=== PATIENT | female | born 1980 | race Caucasian/White ===

== ENCOUNTER 2016-12-06 17:21 | Emergency (ER) | payer OTHER ==
[~2016-12-06] VITALS: Ht 154.9 cm; Wt 52.7 kg
[~2016-12-06 17:21] MED LIST: KLN1X PO; VENL150T33 PO
[2016-12-06 17:46] VITALS: TEMP 36.6; Ht 154.9 cm; Wt 52.7 kg
[2016-12-06] MEDS ORDERED: HYDROCODONE/ACETAMOPHEN 5/325MG TAB PO STA (18:40)
[2016-12-06 18:58] VITALS: BP 101/57; PULSE 89; O2SAT 100
--- NOTE | 2016-12-08 00:41 | EMERGENCY ROOM VISIT NOTE ---
ED Visit Note First contact with patient: 18:15 Chief Complaint: Lower back pain. History of Present Illness: Ms. Vergara is a 36-year-old white female who ambulates into the ED accompanied by a male friend complaining of lower back pain. Historically patient reports she has been having back pain for multiple years. She reports she has never seen a specialist but she has had x-rays of her back that shows no acute diseases and in 2007 she had an MRI which she reports showed multiple areas of degeneration; I was able to review her MRI results and showed diffuse annular bulging at the L3-L4 level with minimal central protrusion, central disc extrusion at L4-L5 and broad-based left sided disc protrusion at L5-S1. Patient reports she recently started a new job about 1.5 weeks ago. 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 Currently she is complaining of achy and spasm-like pain at the L4- S1 area with prominence on the left side. She currently rates her discomfort 9/ 10. She reports there is radiation of her discomfort into both buttocks but the discomfort in her left side radiates into the posterior thigh and stops just above the knee. Her pain worsens with all movement of the lumbar spine, palpation and moving from the sitting to the standing and sitting to lying position. She reports she's been using [id number] medications without relief of her discomfort. Associated with her pain she does report she is having paresthesias of the upper left buttocks area. She denies fevers, chills, sweats, skin eruptions, skin color changes, abdominal pain, nausea, vomiting, constipation, diarrhea, urinary symptoms, hematuria, bowel and bladder dysfunction, vaginal bleeding, vaginal discharge, lower extremity weakness/numbness/tingling, recent weight loss, history of IV drug use. Review of Systems: As noted above in history of present illness. 8 body systems were reviewed and found to be negative as noted above. Past Medical History: Status post tubal ligation and cholecystectomy. Current Medications: Patient denies. Allergies to Medications: Codeine, metronidazole, flurbiprofen, sertraline, milnacipran, ketorolac tromethamine. Social History: Patient is currently employed; she feels safe in her home environment; she admits to tobacco use and denies alcohol use. Physical Examination: Vital Signs: Date Time Temp Pulse Resp B/P Pulse Ox O2 Delivery O2 Flow Rate FiO2 12/06/16 18:58 89 16 101/57 100 12/06/16 17:46 36.6 110 16 96/57 100 Room Air GENERAL: 36-year-old female in moderate distress due to pain, nontoxic-appearing , afebrile and hemodynamically stable. Patient is crying and tearful. NEUROLOGICAL: Awake, alert and oriented to person, place and time. Answering questions appropriately and following commands. Good hand eye coordination. No focal motor sensory deficits. SKIN: Warm, dry and pink. No soft tissue eruptions or trauma noted. HEENT: Atraumatic and normocephalic. BACK: No tenderness over the bony cervical and thoracic spine. No CVA tenderness. Moderate tenderness over the L4 through S1 area over the bony prominence without deformity, step-offs, swelling, ecchymosis or bony crepitus. There is also moderate tenderness throughout the paraspinous bilaterally which was slightly more prominent on the left. There was tenderness in the left buttocks but not the right. Decreased range of motion in all movements of the waist. Unable to perform a straight leg raise test due to patient discomfort. THORAX: Lungs sounds are clear to auscultation and equal bilaterally with symmetrical chest wall. No wheezing, rales or rhonchi. ABDOMEN: Flat, soft and nontender. Positive bowel sounds in all quadrants. No guarding, rigidity or organomegaly. LOWER EXTREMITIES: No gross bony deformity. No tenderness in the hips, thighs , knees, lower legs, ankles or feet. Decreased range of motion of the hips due to back pain. No tenderness over the knees, ankles or feet. Full range of motion of the hips, ankles and toes. 4/5 muscle strength in all movements of the hips, knees, ankles and toes. 2+ patellar and Achilles tendon reflexes intact and equal bilaterally. She was able to distinguish light sensations through all dermatomes of the lower legs and feet. Dorsalis pedis and anterior tibialis pulses are intact and equal bilaterally. Capillary refill is brisk. No calf tenderness or cords. ED Course: Patient is assessed as noted above. Patient was given 2 [place] 5/325 mg tablets by mouth for pain. Patient was educated about tonight's findings and instructed on her treatment plan; she verbalized understanding and agreement with this plan. Clinical Impression: Lumbar back pain. Disposition: Patient discharged home in stable condition accompanied by a male friend; prior to departure she was reassessed and subjectively reported she was feeling worse and rated her discomfort 10/10. Plan: Comfort measures were discussed with the patient including a sliding pain scale of acetaminophen and [place], ice, proper lifting and moving techniques; appropriate narcotic use precautions were discussed with the patient. Patient was encouraged to follow-up with her primary care provider or her previous back provider for recheck if no better in 3-4 days. Patient was encouraged return ED for worsening/uncontrolled pain, fevers, abdominal pain, bloody stools, rectal/genital paresthesias, bowel and bladder dysfunction, lower extremity numbness/tingling or any new/concerning symptoms.
== END 2016-12-06 18:59 | disposition home or self-care (01) ==
LOC: C.EDB 17:22 → C.EDD 18:59
DX: M54.5 Low back pain (principal); F17.210 Nicotine dependence, cigarettes, uncomplicated

== ENCOUNTER 2016-12-29 23:13 | Emergency (ER) | payer OTHER ==
[~2016-12-29] VITALS: Ht 154.9 cm; Wt 50.0 kg
[2016-12-29 23:14] VITALS: TEMP 36.6; Ht 154.9 cm; Wt 50.0 kg
[2016-12-30] MEDS ORDERED: DEXAMETHASONE SOD INJ 10 MG/ML VIAL IM ONE
[2016-12-30] MEDS ORDERED: CYCLOBENZAPRINE HCL 10 MG TAB PO STA
[2016-12-30] MEDS ORDERED: TRAMADOL HCL 50 MG TAB PO STA
[2016-12-30] MEDS ORDERED: TRAMADOL HCL 50 MG HOME PACK PO ONE (01:00)
[2016-12-30] MEDS ORDERED: FLEXERIL HOME PACK 10 MG VIAL PO ONE (01:00)
[2016-12-30] MEDS ORDERED: PRED50TA PO (01:03)
[2016-12-30] MEDS ORDERED: CYCL10TA6 PO (01:03)
[2016-12-30] MEDS ORDERED: TRAM-10 PO (01:03)
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
[2016-12-30 01:28] VITALS: BP 128/68; PULSE 64; O2SAT 96
== END 2016-12-30 01:31 | disposition home or self-care (01) ==
LOC: C.EDB 23:13 → C.EDA 12-30 01:31
DX: M54.5 Low back pain (principal); M54.16 Radiculopathy, lumbar region; G89.29 Other chronic pain; F41.9 Anxiety disorder, unspecified; F32.9 Major depressive disorder, single episode, unspecified; Z87.828 Personal history of other (healed) physical injury and trauma; Z86.19 Personal history of other infectious and parasitic diseases; Z98.51 Tubal ligation status; Z90.49 Acquired absence of other specified parts of digestive tract; Z79.899 Other long term (current) drug therapy; Z88.5 Allergy status to narcotic agent; Z88.8 Allergy status to other drugs, medicaments and biological substances

== ENCOUNTER 2017-04-07 23:41 | Emergency (ER) | payer OTHER ==
[~2017-04-07] VITALS: Ht 154.9 cm; Wt 54.2 kg
[~2017-04-07 23:41] MED LIST changes: +TRAM-10 PO
[2017-04-07 23:48] VITALS: TEMP 36.7; Ht 154.9 cm; Wt 54.2 kg
[2017-04-08] MEDS ORDERED: CEFTRIAXONE SOD INJ 1 GM ADDVIAL IV STA (00:06)
[2017-04-08 00:26] LABS: BASO % 0.3 %; BASO ABS # 0.02 K/uL (0-0.2); COMPLETE YES; EOS % 1.5 %; HEMATOCRIT 32.9 % (37-47); IG% 0.3 %; LYMPH % 27.6 %; LYMPH ABS # 2.07 K/uL (1.2-3.4); MEAN CELL VOLUME 87.7 fL (80-100); MEAN CORPUSCULAR HEMOGLOBIN 27.5 pg (25-34); MEAN CORPUSCULAR HGB CONC 31.3 g/dl (32-36); MEAN PLATELET VOLUME 8.7 fL (7.4-10.4); MONO % 9.3 %; PLATELET COUNT 176 K/uL (130-400); RED BLOOD COUNT 3.75 M/uL (4.2-5.4)
[2017-04-08] MEDS ORDERED: NRN400 PO (00:27)
[2017-04-08] MEDS ORDERED: METH500T PO (00:27)
[2017-04-08 00:44] LABS: BUN/CREATININE RATIO 11.4 (10-20); CALCIUM 8.4 mg/dl (8.5-10.1); CREATININE 0.71 mg/dl (0.60-1.20); POTASSIUM 3.2 mmol/L (3.5-5.1)
[2017-04-08 00:59] LABS: PREG INTERNAL NEGATIVE QC NEG CLEAR BACKGROUND; PREG INTERNAL POSITIVE QC POS CONTROL LINE
[2017-04-08] MEDS ORDERED: POTASSIUM CHLORIDE 10 MEQ TABCR PO STA (01:02)
[2017-04-08] MEDS ORDERED: ACETAMINOPHEN 500 MG TAB PO STA (01:02)
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
[2017-04-08] MEDS ORDERED: CEPHALEXIN 500MG HOME PACK 1 EA BTL PO ONE (01:45)
[2017-04-08] MEDS ORDERED: CEPH500C2 PO (01:46)
[2017-04-08 01:59] VITALS: BP 115/69; PULSE 76; O2SAT 98
--- NOTE | 2017-04-08 06:54 | DIAGNOSTIC IMAGING REPORT ---
TARGETED LEFT BREAST ULTRASOUND CLINICAL HISTORY: Left breast lump. COMPARISON STUDY: Left breast ultrasound May 09, 2014. TECHNIQUE: Targeted sonography of the left breast 6:00 position at site of palpable lump was performed. FINDINGS: No mass, fluid collection or other sonographic abnormality was identified within the left breast at the 6:00 position at the site of palpable abnormality. IMPRESSION: No sonographic abnormality within the left breast at the 6:00 position. No mass or fluid collection identified. If persistent palpable abnormality, a follow-up ultrasound in mammogram are recommended to exclude an occult lesion. Electronically signed by: Joseph Neumann M.D. 04/08/2017 6:52 AM Dictated Date/Time: 04/08/2017 6:50 AM
== END 2017-04-08 01:58 | disposition home or self-care (01) ==
LOC: C.EDB 23:42 → C.EDA 04-08 01:58
DX: N61.0 Mastitis without abscess (principal); M54.5 Low back pain; G89.29 Other chronic pain; F41.9 Anxiety disorder, unspecified; F32.9 Major depressive disorder, single episode, unspecified; Z90.49 Acquired absence of other specified parts of digestive tract; Z98.51 Tubal ligation status; Z83.3 Family history of diabetes mellitus; Z84.1 Family history of disorders of kidney and ureter; F17.210 Nicotine dependence, cigarettes, uncomplicated; Z79.899 Other long term (current) drug therapy

== ENCOUNTER 2017-04-13 10:43 | Emergency (ER) | payer OTHER ==
[~2017-04-13] VITALS: Ht 154.9 cm; Wt 52.9 kg
[~2017-04-13 10:43] MED LIST changes: +CEPH500C2 PO; +METH500T PO; +NRN400 PO; -TRAM-10 PO
[2017-04-13 10:44] VITALS: TEMP 36.7; Ht 154.9 cm; Wt 52.9 kg
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
[2017-04-13] MEDS ORDERED: CLONAZEPAM 0.5 MG TAB PO STA (11:15)
[2017-04-13 11:37] LABS: BASO % 0.1 %; BASO ABS # 0.01 K/uL (0-0.2); COMPLETE YES; EOS % 1.3 %; HEMATOCRIT 35.2 % (37-47); IG% 0.3 %; LYMPH % 18.6 %; LYMPH ABS # 1.42 K/uL (1.2-3.4); MEAN CORPUSCULAR HEMOGLOBIN 27.5 pg (25-34); MEAN CORPUSCULAR HGB CONC 31.3 g/dl (32-36); MEAN PLATELET VOLUME 8.8 fL (7.4-10.4); MONO % 12.7 %; PLATELET COUNT 177 K/uL (130-400); WHITE BLOOD COUNT 7.63 K/uL (4.8-10.8)
[2017-04-13] MEDS ORDERED: IBUP600T44 PO (11:44)
[2017-04-13 11:58] LABS: ALT/SGPT 12 U/L (12-78); AST/SGOT 9 U/L (15-37); BLOOD UREA NITROGEN 7 mg/dl (7-18); BUN/CREATININE RATIO 11.5 (10-20); CALCIUM 8.5 mg/dl (8.5-10.1); CARBON DIOXIDE 29 mmol/L (21-32); CHLORIDE 109 mmol/L (98-107); CREATININE 0.64 mg/dl (0.60-1.20); GLUCOSE 83 mg/dl (70-99); POTASSIUM 3.8 mmol/L (3.5-5.1); SODIUM 142 mmol/L (136-145)
[2017-04-13 12:01] LABS: ALKALINE PHOSPHATASE 54 U/L (45-117)
--- NOTE | 2017-04-13 12:19 | DIAGNOSTIC IMAGING REPORT ---
BREAST LIMITED UNILATERAL CLINICAL HISTORY: 36 years-old Female presenting with increased thickening and induration of the left breast with tenderness at 6:00. TECHNIQUE: Real-time grayscale ultrasound imaging of the left breast was performed. Color Doppler was also performed. COMPARISON: None. FINDINGS: Heterogeneity and architectural distortion of the normal memory fat. Dilated subcutaneous lymphatics noted. No focal collection. No definite mass. Heterogeneous perfusion noted. No evidence of a dilated duct. IMPRESSION: 1. Findings could suggest cellulitis with phlegmonous changes. No definite abscess or mass. Continued clinical follow-up recommended with possible repeat ultrasound after trial of antibiotics. Electronically signed by: Wilbert Munoz M.D. 04/13/2017 12:18 PM Dictated Date/Time: 04/13/2017 12:15 PM
[2017-04-13] MEDS ORDERED: CEFTRIAXONE SOD INJ 1 GM ADDVIAL IV STA (12:21)
[2017-04-13] MEDS ORDERED: CEFD1CAP14 PO (12:40)
[2017-04-13] MEDS ORDERED: SULF800T23 PO (12:40)
[2017-04-13] MEDS ORDERED: SULFAMETHOXAZOLE/TRIMETHOPRIM DS 800/160MG TAB PO ONE (12:45)
[2017-04-13 13:21] VITALS: BP 108/69; PULSE 102; O2SAT 100
== END 2017-04-13 13:26 | disposition home or self-care (01) ==
LOC: C.EDB 10:44 → C.EDC 13:26
DX: N61.0 Mastitis without abscess (principal); F41.9 Anxiety disorder, unspecified; G89.29 Other chronic pain; M54.9 Dorsalgia, unspecified; F32.9 Major depressive disorder, single episode, unspecified; K29.70 Gastritis, unspecified, without bleeding; E87.6 Hypokalemia; G43.909 Migraine, unspecified, not intractable, without status migrainosus; N73.9 Female pelvic inflammatory disease, unspecified; Z83.3 Family history of diabetes mellitus; Z84.1 Family history of disorders of kidney and ureter; F17.210 Nicotine dependence, cigarettes, uncomplicated; Z79.899 Other long term (current) drug therapy

== ENCOUNTER → 2017-04-27 | Outpatient (CLI) | payer OTHER ==
[~2017-04-27] MED LIST changes: -CEPH500C2 PO; +IBUP600T44 PO; +SULF800T23 PO
--- NOTE | 2017-04-27 14:07 | MAMMOGRAPHY REPORT ---
BILATERAL DIGITAL DIAGNOSTIC MAMMOGRAM TOMOSYNTHESIS WITH CAD AND TARGETED LEFT ULTRASOUND: 04/27/2017 CLINICAL HISTORY: The patient reports that approximately 3 weeks ago she had a painful lump in her le ft inferior breast and did have associated erythema of the skin. She went to the emergency room and was placed on antibiotics with no significant improvement. She returned to the emergency room at [facility] and was placed on new antibiotics. After she was placed on new antibiotics, the lump became smaller and the pain was reduced although she still has a painful lump. She was able to squeeze gree n discharge from her nipples bilaterally. On questioning, she does smoke cigarettes. TECHNIQUE: Breast tomosynthesis in addition to standard 2D mammography was performed. Current study was also evaluated with a Computer Aided Detection (CAD) system. Bilateral CC and MLO 2-D and tomosy nthesis images were obtained. COMPARISON: Comparison is made to exams dated: 05/09/2014 mammogram and 05/09/2014 ultrasound - [facility]. BREAST COMPOSITION: The tissue of both breasts is extremely dense, which lowers the sensitivity of m ammography. FINDINGS: A triangle marker was at the site of the palpable lump in the left 6:00 breast. There are no suspicious masses, calcifications, or areas of architectural distortion seen in either breast mamm ographically. Targeted ultrasound was performed of the area of the palpable lump pointed out by the patient, which involves the majority of the left inferior breast from approximately 4 to 8:00. No suspicious masses or other suspicious sonographic abnormalities are evident. No focal fluid collection is seen to sug gest abscess. A few incidental anechoic benign cysts were noted during the exam, including a [address] in the left subareolar breast, and 7 and 6 mm cysts in the left breast at 8:00, 4 cm from the nipp le. IMPRESSION: ACR BI-RADS CATEGORY 2: BENIGN, TARGETED ULTRASOUND ACR BI-RADS CATEGORY 2: BENIGN No suspicious sonographic or sonographic abnormality at the site of the painful palpable lump in the left inferior breast. Given the clinical history of a painful palpable lump with associated skin tori thema and given that the symptoms have improved, findings are benign and likely represent resolving m astitis. No evidence of abscess. There is no mammographic or targeted sonographic evidence of malign omar. Recommend clinical follow-up for left breast symptoms; the patient was advised to return to her docto r if symptoms worsen or recur. As smoking is a risk factor for nonpuerperal mastitis, smoking cessat ion was also discussed with the patient. Recommend routine bilateral screening mammograms starting a t the age of 40 unless otherwise clinically indicated. The patient has been verbally notified of the results. Approximately 10% of breast cancers are not detected with mammography. A negative mammographic report should not delay biopsy if a clinically suggestive mass is present. Serenity Dan M.D. ah/:04/27/2017 10:40:31 Grain Thresher: Becky CARTAGENA(R)(M), [facility] letter sent: Normal 1/2 BI-RADS Code: ACR BI-RADS Category 2: Benign Ultrasound BI-RADS: ACR BI-RADS Category 2: Benign
== END | disposition home or self-care (01) ==
LOC: C.MAMM 09:57
PROVIDERS: ATTEND Physician Assistant Medical
DX: N63 Unspecified lump in breast (principal)

== ENCOUNTER 2017-06-27 20:32 | Emergency (ER) | payer OTHER ==
[~2017-06-27] VITALS: Ht 154.9 cm; Wt 56.4 kg
[2017-06-27 20:48] VITALS: TEMP 36.3; Ht 154.9 cm; Wt 56.4 kg
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
[2017-06-27 22:35] LABS: PREG INTERNAL NEGATIVE QC NEG CLEAR BACKGROUND; PREG INTERNAL POSITIVE QC POS CONTROL LINE
[2017-06-27 22:40] LABS: BENZODIAZEPINE, URINE NEG (NEG); COCAINE,URINE NEG (NEG); PHENCYCLIDINE, URINE NEG (NEG)
[2017-06-27 22:55] VITALS: BP 108/75; PULSE 95; O2SAT 99
[2017-06-30 07:43] LABS: COD UR NEGATIVE NG/ML (CUTOFF=50); HYDROCOD UR NEGATIVE NG/ML (CUTOFF=50); HYDROMOR UR NEGATIVE NG/ML (CUTOFF=50); MORPHINE UR 2210 NG/ML (CUTOFF=50); NORHYDROCODONE CONF UR NEGATIVE NG/ML (CUTOFF=50); OXYMORPH UR 128 NG/ML (CUTOFF=50)
== END 2017-06-27 22:59 | disposition home or self-care (01) ==
LOC: C.EDB 20:35 → C.EDA 22:59
DX: F11.10 Opioid abuse, uncomplicated (principal); F32.9 Major depressive disorder, single episode, unspecified; F41.9 Anxiety disorder, unspecified; G89.29 Other chronic pain; N83.202 Unspecified ovarian cyst, left side; F17.200 Nicotine dependence, unspecified, uncomplicated; Z87.828 Personal history of other (healed) physical injury and trauma; Z91.81 History of falling; Z86.19 Personal history of other infectious and parasitic diseases; Z90.49 Acquired absence of other specified parts of digestive tract; Z98.51 Tubal ligation status; Z79.899 Other long term (current) drug therapy; Z88.5 Allergy status to narcotic agent; Z88.8 Allergy status to other drugs, medicaments and biological substances; Z83.3 Family history of diabetes mellitus; Z84.1 Family history of disorders of kidney and ureter

== ENCOUNTER → 2017-08-08 | Outpatient (CLI) | payer OTHER ==
[~2017-08-08] MED LIST changes: -METH500T PO; -SULF800T23 PO
[2017-08-08 12:42] LABS: BENZODIAZEPINE, URINE NEG (NEG); COCAINE,URINE NEG (NEG); PHENCYCLIDINE, URINE NEG (NEG)
== END | disposition home or self-care (01) ==
LOC: C.LABBFT 10:05
PROVIDERS: ATTEND Psychiatry & Neurology Geriatric Psychiatry
DX: F11.20 Opioid dependence, uncomplicated (principal); Z79.899 Other long term (current) drug therapy

== ENCOUNTER → 2017-12-20 | Outpatient (CLI) | payer OTHER ==
[2017-12-20 16:33] LABS: BASO % 0.7 %; BASO ABS # 0.04 K/uL (0-0.2); EOS ABS # 0.24 K/uL (0-0.5); HEMATOCRIT 30.8 % (37-47); HEMOGLOBIN 9.7 g/dL (12.0-16.0); IG# 0.02 K/uL (0.00-0.02); LYMPH % 32.5 %; LYMPH ABS # 1.96 K/uL (1.2-3.4); MEAN CELL VOLUME 81.3 fL (80-100); MEAN CORPUSCULAR HEMOGLOBIN 25.6 pg (25-34); MEAN CORPUSCULAR HGB CONC 31.5 g/dl (32-36); MEAN PLATELET VOLUME 8.8 fL (7.4-10.4); MONO % 9.8 %; MONO ABS # 0.59 K/uL (0.11-0.59); NEUT % 52.7 %; NEUT ABS # 3.18 K/uL (1.4-6.5); PLATELET COUNT 236 K/uL (130-400); RED CELL DISTRIBUTION WIDTH CV 18.5 % (11.5-14.5); RED CELL DISTRIBUTION WIDTH SD 54.7 fL (36.4-46.3); WHITE BLOOD COUNT 6.03 K/uL (4.8-10.8)
[2017-12-20 16:43] LABS: ALBUMIN 3.4 gm/dl (3.4-5.0); ALT/SGPT 20 U/L (12-78); AST/SGOT 23 U/L (15-37); BLOOD UREA NITROGEN 14 mg/dl (7-18); CALCIUM 8.2 mg/dl (8.5-10.1); CARBON DIOXIDE 26 mmol/L (21-32); CREATININE 0.78 mg/dl (0.60-1.20); GLUCOSE 95 mg/dl (70-99); SODIUM 137 mmol/L (136-145)
[2017-12-20 16:53] LABS: ALKALINE PHOSPHATASE 62 U/L (45-117); TOTAL PROTEIN 6.9 gm/dl (6.4-8.2)
[2017-12-26 22:26] LABS: ANA SCREEN TC 249X NEGATIVE (NEGATIVE); ANTI-SS-A <1.0 NEG AI (<1.0 NEG); ANTI-SS-B <1.0 NEG AI (<1.0 NEG); ANTICARDIOLIPID AB IGA <11 APL (< = 11); COMPLEMENT C3 TC 44859W 111 MG/DL (90-180); COMPLEMENT C4 TC 44982E 20 MG/DL (16-47); MICROSOMAL AB 1 IU/ML (<9)
== END | disposition home or self-care (01) ==
LOC: C.LABBFT 12:55
PROVIDERS: ATTEND Nurse Practitioner
DX: M25.50 Pain in unspecified joint (principal); R63.5 Abnormal weight gain